=== PATIENT | female | born 1970 | race Two or more races ===

== ENCOUNTER 2020-03-16 03:17 | Emergency (ER) | payer BC, OTHER ==
[~2020-03-16] VITALS: Ht 167.6 cm; Wt 80.3 kg
--- NOTE | 2020-03-16 03:23 | NUR ---
PATIENT CAME TO ER BED 9 C/O SEIZURES THAT LASTED ABOUT 2-3 MINUTES. PATIENT STATES THAT SHE TAKES KEPPRA TO PREVENT SEIZURES. SHE ALSO STATES THAT SHE HAS BEEN VOMITING AND FEELING NAUSEOUS THROUGHOUT THE WEEK. PATIENT IS AAOX4. NO SOB. BREATHING EVENLY AND UNLABORED ON ROOM AIR. CONNECTED TO MONITOR.
--- NOTE | 2020-03-16 03:24 | NUR ---
SIDE RAILS PADDED AND SUCTION AT BEDSIDE.
--- NOTE | 2020-03-16 03:30 | NUR ---
15SECOND SEIZURE WITNESSED ON PATIENT. MD NOTIFIED.
[2020-03-16] MEDS ORDERED: LORAZEPAM INJ 2 MG/ML VIAL ONE (03:37)
[2020-03-16 03:42] LABS: BASOPHILS # (AUTO) 0.1 /CMM (0.0-0.2); BASOPHILS % (AUTO) 1.4 % (0.0-2.0); HEMATOCRIT 35 % (33-45); HEMOGLOBIN 11.4 g/dL (11.5-14.8); LYMPHOCYTES # (AUTO) 0.7 /CMM (0.8-4.8); LYMPHOCYTES % (AUTO) 12.8 % (20.0-44.0); MEAN CORPUSCULAR HGB CONC 32 g/dl (31.0-36.0); MEAN CORPUSCULAR VOLUME 88 fL (82-100); MONOCYTES # (AUTO) 0.4 /CMM (0.1-1.30); MONOCYTES % (AUTO) 6.8 % (2.0-12.0); NEUTROPHILS # (AUTO) 4.2 /CMM (1.8-8.9); PLATELET COUNT (AUTO) 215 /CMM (150-450); RED BLOOD CELL COUNT(AUTO) 4.02 MIL/uL (4.0-5.2); WHITE BLOOD COUNT (AUTO) 5.3 K/uL (4.3-11.0)
--- NOTE | 2020-03-16 03:45 | NUR ---
RT AT BEDSIDE FOR ABG
[2020-03-16] MEDS ORDERED: ONDANSETRON HCL/PF 4 MG/2 ML VIAL ONE (03:49)
[2020-03-16 03:56] LABS: CALCIUM, SERUM 8.9 mg/dL (8.5-10.1); CARBON DIOXIDE 30 mmol/L (21-32); CHLORIDE 87 mmol/L (98-107); CREATININE 3.5 mg/dL (0.6-1.3); POTASSIUM 4.4 mmol/L (3.5-5.1); SODIUM SERUM 123 mmol/L (136-145); UREA NITROGEN, BLOOD 32 mg/dL (7-18)
[2020-03-16 03:59] LABS: GLUCOSE 657 mg/dL (74-106)
[2020-03-16] MEDS ORDERED: LORAZEPAM INJ 2 MG/ML VIAL IV ONE (04:00)
[2020-03-16] MEDS ORDERED: ONDANSETRON HCL/PF 4 MG/2 ML VIAL IV ONE (04:00)
[2020-03-16] MEDS ORDERED: INSULIN REGULAR, HUMAN 100 UNIT/ML 10 ML VIAL ONE (04:18)
[2020-03-16] MEDS ORDERED: LEVETIRACETAM (500MG) 1,000 MG in IV NS 0.9% 100 ML IV SCH (04:30)
[2020-03-16] MEDS ORDERED: INSULIN REGULAR, HUMAN 100 UNIT/ML 10 ML VIAL IV ONE ×2 (04:30→05:00)
[2020-03-16] MEDS ORDERED: LEVETIRACETAM (500MG) 500 MG/5 ML VIAL IV ONE (04:34)
[2020-03-16 04:51] LABS: ABG BASE EXCESS -0.1 mmol/L; ABG OXYGEN SATURATION 91.6 % (92.0-98.5); ABG PCO2 37.4 mmHg (35.0-45.0); ABG PH 7.427 (7.350-7.450); AaDO2 38.9 mmHg; COHb 0.5 % (0.5-1.5); MetHb 0.3 % (0.0-1.5); O2Hb 90.9 % (94.0-97.0); SITE, ABG Left Brachial; VENT MODE, BG room air
--- NOTE | 2020-03-16 07:29 | NUR ---
CALLED [facility] FOR AMBULANCE TRANSFER TO [place]. RESERVATION NUMBER [id number]. WILL RECIEVE A CALL BACK WITH TRANSFER INFO AND ETA.
--- NOTE | 2020-03-16 07:41 | NUR ---
REPORT RECEIVED FROM CAREY GREEN FOR [facility]
--- NOTE | 2020-03-16 08:03 | NUR ---
RECIEVED A CALL FROM [facility] WILL BE HERE FOR PATIENT AT 0930.
--- NOTE | 2020-03-16 09:33 | NUR ---
CLEANSED AND COVERED WITH DRESSING R CHEST PORT-A-CATH
--- NOTE | 2020-03-16 10:45 | NUR ---
Patient picked up by ANNA THOMPSON (Khai Allen) in stable condition. Patient will be brought to home, per patient, mother is waiting for her. Written and verbal after care instructions given. Patient verbalizes understanding of instruction.
[2020-03-16 10:48] VITALS: BP 163/72
== END 2020-03-16 10:49 | disposition home or self-care (01) ==
LOC: ER 03:19
DX: G40.909 Epilepsy, unspecified, not intractable, without status epilepticus (principal); E11.22 Type 2 diabetes mellitus with diabetic chronic kidney disease; N18.6 End stage renal disease; E11.65 Type 2 diabetes mellitus with hyperglycemia; R94.31 Abnormal electrocardiogram [ECG] [EKG]; Z99.2 Dependence on renal dialysis; Z88.0 Allergy status to penicillin; Z88.1 Allergy status to other antibiotic agents
CPT/HCPCS: 36415; 36600 ×2; 80048; 82010; 82803; 82962 ×5; 85025; 93005; 96365; 96375; 96376; 99285; J1815; J1953; J2060; J2405; J7030 ×2

== ENCOUNTER 2020-03-18 20:01 | Emergency (ER) | payer BC ==
[~2020-03-18] VITALS: Ht 167.6 cm; Wt 93.4 kg
--- NOTE | 2020-03-18 20:10 | NUR ---
KEVIN 38 FROM [facility] FOR C/O WEAKNESS 30MIN PRIOR TO FINISH HD SESSION; PT AWAKE, ALERT, PLACED ON MONITOR, -SOB. -CP, SPEAKING IN FULL SENTENCES, NOT IN ACUTE DISTRESS, PENDING ER DOCTOR MARIAN
--- NOTE | 2020-03-18 20:20 | NUR ---
HORTICULTURE SUPERINTENDENT AT BEDSIDE
[2020-03-18 20:30] LABS: EOSINOPHILS % (AUTO) 1.8 % (0.0-6.0); HEMATOCRIT 30 % (33-45); HEMOGLOBIN 9.8 g/dL (11.5-14.8); LYMPHOCYTES # (AUTO) 0.8 /CMM (0.8-4.8); MEAN CORPUSCULAR HGB CONC 33 g/dl (31.0-36.0); MEAN CORPUSCULAR VOLUME 88 fL (82-100); MONOCYTES # (AUTO) 0.4 /CMM (0.1-1.30); MONOCYTES % (AUTO) 11.7 % (2.0-12.0); NEUTROPHILS # (AUTO) 2.1 /CMM (1.8-8.9); NEUTROPHILS % (AUTO) 62.5 % (43.0-81.0); PLATELET COUNT (AUTO) 169 /CMM (150-450); RED BLOOD CELL COUNT(AUTO) 3.36 MIL/uL (4.0-5.2); WHITE BLOOD COUNT (AUTO) 3.4 K/uL (4.3-11.0)
[2020-03-18 20:39] LABS: CALCIUM, SERUM 8.7 mg/dL (8.5-10.1); CARBON DIOXIDE 31 mmol/L (21-32); CHLORIDE 97 mmol/L (98-107); CREATININE 2.4 mg/dL (0.6-1.3); GLUCOSE 295 mg/dL (74-106); POTASSIUM 3.2 mmol/L (3.5-5.1); SODIUM SERUM 133 mmol/L (136-145); UREA NITROGEN, BLOOD 19 mg/dL (7-18)
[2020-03-18 20:45] LABS: ALANINE AMINOTRANSFERASE 48 U/L (12-78); ALBUMIN 2.7 g/dL (3.4-5.0); ALKALINE PHOSPHATASE 226 U/L (46-116); ASPARTATE AMINOTRANSFERASE 39 U/L (15-37); BILIRUBIN,DIRECT 0.1 mg/dL (0.0-0.2); BILIRUBIN,TOTAL 0.2 mg/dL (0.2-1.0); TOTAL PROTEIN, SERUM 6.4 g/dL (6.4-8.2)
--- NOTE | 2020-03-18 21:27 | NUR ---
ATTEMPTED TO CONTACT [employer] SHIFT SUPERVISOR LINDSAY ([phone]) REGARDING MD TO MD, NO ANSWER. LEFT MESSAGE, WILL FOLLOW UP
--- NOTE | 2020-03-18 21:32 | NUR ---
ATTEMPTED TO CONTACT DR. BENEDICT ([facility] ) [phone]. NO ANSWER, LEFT MESSAGE, WILL FOLLOW UP.
--- NOTE | 2020-03-18 21:45 | NUR ---
DR. BENITEZ SPEAKING WITH DR. BENEDICT
--- NOTE | 2020-03-18 21:49 | NUR ---
PT ACCEPTED TO [facility] BY DR. BENEDICT. WAITING FOR CALL BACK FROM CAR REPAIRER APPRENTICE LINDSAY REGARDING TRANSFER INFORMATION
--- NOTE | 2020-03-18 22:44 | NUR ---
TRANSFER INFORMATION: PT WILL BE TRANSFERRED TO [facility] PER INSURANCE REQUEST ACCEPTING MD: DR. BENEDICT NUMBER FOR REPORT: [phone] ROOM ASSIGNMENT: [id number] TELE AUTH FOR TRANSPORTATION: [id number] ETA 0015
--- NOTE | 2020-03-18 23:10 | NUR ---
PER MARIO, [facility] AMB[facility]ANCE NOT AVAILABLE UNTIL 0600
--- NOTE | 2020-03-18 23:16 | NUR ---
SPOKE WITH [facility], NO [facility] AM[facility]ULANCE AVAILABLE UNTIL AFTER 0700
--- NOTE | 2020-03-18 23:21 | NUR ---
CALLED [facility], NO [facility] AM[facility]ANCE AVAILABLE UNTIL AFTER 0700
--- NOTE | 2020-03-18 23:29 | NUR ---
[facility] ETA 0012
[2020-03-18 23:47] VITALS: BP 147/94
--- NOTE | 2020-03-19 00:05 | NUR ---
report given to zuleima arroyo at [facility]
--- NOTE | 2020-03-19 00:20 | NUR ---
pt left in stable cond to [facility]; pt left via private amb; -sob. vss. report given to amb staff.
== END 2020-03-19 00:20 | disposition short-term general hospital (02) ==
LOC: ER 20:01
DX: R55 Syncope and collapse (principal); E11.22 Type 2 diabetes mellitus with diabetic chronic kidney disease; I13.2 Hypertensive heart and chronic kidney disease with heart failure and with stage 5 chronic kidney disease, or end stage renal disease; N18.6 End stage renal disease; E87.70 Fluid overload, unspecified; J90 Pleural effusion, not elsewhere classified; E87.6 Hypokalemia; E78.5 Hyperlipidemia, unspecified; R56.9 Unspecified convulsions; R60.0 Localized edema; R00.1 Bradycardia, unspecified; Z99.2 Dependence on renal dialysis; Z98.890 Other specified postprocedural states; Z88.0 Allergy status to penicillin; Z88.1 Allergy status to other antibiotic agents
CPT/HCPCS: 36415; 71045-TC; 80048-TC; 80076-TC; 84484-TC; 85025-TC; 85730-TC; 86850-TC; 87081-TC